=== PATIENT | male | born 1985 | race Caucasian/White ===

== ENCOUNTER 2020-04-24 18:30 | Emergency (ER) | payer OTHER, SELFPAY ==
[2020-04-24] VITALS (8 sets, daily range): BP systolic 127–192; BP diastolic 68–112; PULSE 57–88; RESP 16; TEMP 36.7; O2SAT 96–99; BMI 27.6
--- NOTE | 2020-04-24 20:14 | PC.NURSE ---
Patient reports eating dinner approx 1730 and got food bolus caught in throat. Reports history of this happening before and 4 throat surgeries in past. Patient denies SOB or difficulty breathing. No cyanosis noted, drooling, or abnormal speech.
--- NOTE | 2020-04-24 20:43 | ED_ITS ---
HPI - Skin/Abscess/Foreign Bdy General Chief complaint: Skin/Abscess/Foreign Body Stated complaint: FOOD CAUGHT IN THROAT Time Seen by Provider: 04/24/20 20:01 Source: patient and family History of Present Illness HPI narrative: Patient here with . History of eosinophilic esophagitis. History of food bolus impaction. Has had EGD 4 times. Last episode 2016 in [facility]. Today at 5:45 a.m. patient ate pork and immediately felt it get stuck. Has been spitting up since then. No dyspnea. Related Data Allergies Allergy/AdvReac Type Severity Reaction Status Date / Time No Known Drug Allergies Allergy Verified 04/24/20 20:51 Review of Systems Review of Systems Narrative: GENERAL: Denies chills, fatigue, malaise, fever, sweats. HEENT: Denies sinus pain, ear pain, sore throat, difficulty swallowing, dizziness. RESPIRATORY: Denies dyspnea, cough, wheezing, hemoptysis, sputum. CARDIOVASCULAR: Denies chest pain, palpitations, orthopnea, edema, GASTROINTESTINAL: Denies nausea, vomiting, abdominal pain, diarrhea, constipation, melena. : Denies dysuria, frequency, incontinence, hematuria, urinary retention. MUSCULOSKELETAL: denies weakness, joint pain, or bony pain SKIN: Denies rash, skin lesions, or other NEUROLOGIC: Denies weakness, headache, numbness, change in speech, confusion, seizures, incoordination. PSYCHIATRIC: No concerning psychosocial issues. ROS Unobtainable: All systems reviewed & are unremarkable except as noted in HPI and below Patient History Social History Smoking Status: Never smoker Smoking Status: Never smoker alcohol intake frequency: holidays/special occasions only Substance Use Type: does not use Exam Narrative Exam Narrative: GENERAL: patient appears stated age. Well-nourished, well- developed patient, in no distress, not toxic HEAD: Atraumatic. Normocephalic. EYES: Pupils equal round and reactive. Extraocular motions intact. No scleral icterus. No injection or drainage. ENT: Nose without bleeding, purulent drainage. Throat without erythema, tonsillar hypertrophy or exudate. Airway patent. Spitting up saliva NECK: Trachea midline. Non tender no stridor CARDIOVASCULAR: Regular rate and rhythm without murmurs, gallops, or rubs. RESPIRATORY: Clear to auscultation. Breath sounds equal bilaterally. No wheezes, rales, or rhonchi. Speaking full sentences GASTROINTESTINAL: Abdomen soft, non-tender, nondistended. EXTREMITIES: No edema or joint tenderness. BACK: Nontender without deformity or crepitance. No flank tenderness. NEURO: AOx3. SKIN: No rash or erythema of visible areas PSYCH: Not anxious, is cooperative Initial Vital Signs Initial Vital Signs: Vital Signs Temperature 98.0 F 04/24/20 18:34 Pulse Rate 57 L 04/24/20 18:34 Respiratory Rate 16 04/24/20 18:34 Blood Pressure 127/88 04/24/20 18:34 Pulse Oximetry 96 04/24/20 18:34 Course Course Course Narrative: Patient unable swallow after glucagon and Valium Decision to Admit Date: 04/24/20 Decision to Admit time: 21:47 Orders Ordered: ED Orders 04/24/20 20:48 Complete Blood Count AUTO DIFF Stat Comprehensive Metabolic Panel Stat Discontinued Medications Diazepam (Valium) 5 mg IV NOW ONE Stop: 04/24/20 21:06 Last Admin: 04/24/20 21:11 Dose: 5 mg Documented by: JOSE Diphenhydramine HCl (Benadryl) 25 mg IV NOW ONE Stop: 04/24/20 22:22 Last Admin: 04/24/20 22:22 Dose: 25 mg Documented by: HARRY Glucagon (Glucagen) 1 mg IV NOW ONE Stop: 04/24/20 20:43 Last Admin: 04/24/20 20:58 Dose: 1 mg Documented by: AMBIKAIN Famotidine (Pepcid) 20 mg in 50 mls @ 200 mls/hr IV NOW ONE Stop: 04/24/20 22:05 Last Infusion: 04/24/20 22:18 Dose: 0 mls/hr Documented by: Admin: 04/24/20 21:57 Dose: 200 mls/hr Documented by: MISSYARTIN Metoclopramide HCl (Reglan) 10 mg IV NOW ONE Stop: 04/24/20 21:52 Last Admin: 04/24/20 21:57 Dose: 10 mg Documented by: JOSE Reevaluation(s) Reevaluation #1: Unable to swallow water after glucagon and Valium Time: 21:48 Reevaluation #2: At time of transfer to OR. Patient had received Benadryl and Reglan and felt his food bolus go into the stomach. He is freely drinking water and no spitting up or drooling. Patient re-evaluated by surgeon and patient can be discharged home Time: 22:41 Consultations Consultation #1: Spoke with Dr. Logan, general surgery, she will come in to do EGD for patient Time: 21:48 Vital Signs Vital signs: Vital Signs - 8 hr 04/24/20 21:22 04/24/20 21:30 04/24/20 22:04 Pulse Rate 88 86 78 Blood Pressure 128/81 Pulse Oximetry 97 99 98 04/24/20 22:05 04/24/20 22:30 04/24/20 22:31 Pulse Rate 71 75 67 Blood Pressure 131/82 192/112 H Pulse Oximetry 98 98 97 04/24/20 22:36 Pulse Rate 74 Blood Pressure 136/68 Pulse Oximetry 98 MDM - Skin/Abscess/Foreign Bdy Lab Data Result diagrams: 04/24/20 20:48 04/24/20 20:48 Labs: Lab Results 04/24/20 04/24/20 04/24/20 Range/Units 20:48 20:48 21:34 WBC 7.4 (4.5-11.0) X10^3/uL RBC 4.58 (4.5-5.9) X10^6/uL Hgb 14.3 (13.5-17.5) g/dL Hct 41.8 (41-53) % MCV 91.2 (80-100) fL MCH 31.3 (26-34) PG MCHC 34.3 (30-36) % RDW 12.8 (11.6-14.8) % Plt Count 236 (150-400) X10^3/uL Neut % (Auto) 51.5 (50-75) % Lymph % (Auto) 31.9 (25-40) % [place] % (Auto) 7.3 (3-14) % Eos % (Auto) 8.6 H (2-4) % Baso % (Auto) 0.7 (0-2) % Neut # (Auto) 3800 (2094-5020) /uL Lymph # (Auto) 2400 (7626-9485) /uL [place] # (Auto) 500 (0-900) /uL Eos # (Auto) 600 H (0-450) /uL Baso # (Auto) 0 (0-100) /uL Sodium 142 (137-145) mmol/L Potassium 4.1 (3.4-5.1) mmol/L Chloride 109 H (98-107) mmol/L Carbon Dioxide 24 (22-32) mmol/L BUN 13 (9-20) mg/dL Creatinine 1.05 (0.66-1.25) mg/dL Estimated GFR > 60.0 (>60) mL/min BUN/Creatinine Ratio 12.4 (6-22) Glucose 97 (70-100) mg/dL Calcium 9.3 (8.4-10.2) mg/dL Total Bilirubin 1.0 (0.2-1.3) mg/dL AST 39 (17-59) IU/L ALT 42 (<50) IU/L Alkaline Phosphatase 64 (38-126) U/L Total Protein 7.8 (6.3-8.2) g/dL Albumin 4.6 (3.5-5.0) g/dL Globulin 3.2 (1.7-4.1) g/dL Albumin/Globulin Ratio 1.4 (1.0-2.8) COVID-19 PCR Negative (Negative) MDM Narrative Medical decision making narrative: Admit to surgery for EGD. Unable to swallow Discharge Plan Departure Patient Disposition: Home Clinical Impression: Esophageal obstruction due to food impaction Discharge Date/Time: 04/24/20 22:57 Instructions: DI for Foreign Body, Swallowed-Adult Activity Restrictions/Additional Instructions: Return if worse. Or any concerns or if any trouble swallowing. Call provided number to establish family doctor and for possible referral to desizing machine operator head end. Continue with soft food diet. No meats Referrals: [facility] [Outside]
[2020-04-24] MEDS: GLUCAGON,HUMAN RECOMBINANT 1 MG/ML VIAL IV (20:58)
[2020-04-24] MEDS: diazePAM 10 MG/2 ML SYRINGE 5 MG IV (21:11)
[2020-04-24 21:53] LABS: Add Manual Diff / Slide Review NO; Basophils Absolute Auto 0 /uL (0-100); Basophils Percent Auto 0.7 % (0-2); Eosinophils Absolute Auto 600 /uL (0-450); Eosinophils Percent Auto 8.6 % (2-4); Hematocrit 41.8 % (41-53); Hemoglobin 14.3 g/dL (13.5-17.5); Lymphocytes Absolute Auto 2400 /uL (1100-4500); Lymphocytes Percent Auto 31.9 % (25-40); Mean Corpuscular HGB Conc 34.3 % (30-36); Mean Corpuscular Hemoglobin 31.3 PG (26-34); Mean Corpuscular Volume 91.2 fL (80-100); Monocytes Absolute Auto 500 /uL (0-900); Monocytes Percent Auto 7.3 % (3-14); Neutrophils Absolute Auto 3800 /uL (1500-7000); Neutrophils Percent Auto 51.5 % (50-75); Platelet Count 236 X10^3/uL (150-400); Red Blood Cell Count 4.58 X10^6/uL (4.5-5.9); Red Cell Distribution Width 12.8 % (11.6-14.8); White Blood Cell Count 7.4 X10^3/uL (4.5-11.0)
[2020-04-24] MEDS: FAMOTIDINE 20 MG/50 ML PIGGYBACK 200 MG IV (21:57)
[2020-04-24] MEDS: METOCLOPRAMIDE 10 MG/2 ML INJ IV (21:57)
[2020-04-24 22:04] LABS: Alanine Aminotransferase 42 IU/L (<50); Albumin 4.6 g/dL (3.5-5.0); Albumin Globulin Ratio 1.4 (1.0-2.8); Alkaline Phosphatase 64 U/L (38-126); Aspartate Aminotransferase 39 IU/L (17-59); BUN Creatinine Ratio 12.4 (6-22); Blood Urea Nitrogen 13 mg/dL (9-20); Calcium 9.3 mg/dL (8.4-10.2); Carbon Dioxide 24 mmol/L (22-32); Chloride 109 mmol/L (98-107); Estimated Glomerular Filt Rate > 60.0 mL/min (>60); Globulin 3.2 g/dL (1.7-4.1); Glucose 97 mg/dL (70-100); HEMOLYSIS < 15 (0-50); Potassium 4.1 mmol/L (3.4-5.1); Sodium 142 mmol/L (137-145); Total Protein 7.8 g/dL (6.3-8.2)
--- NOTE | 2020-04-24 22:15 | PM.HP.1 ---
History of Present Illness History of Present Illness Date Patient Seen: 04/24/20 Time Patient Seen: 22:15 Chief complaint: FOOD CAUGHT IN THROAT Narrative: This is a 34-year-old man with history of eosinophilic esophagitis and esophageal food impaction x4. Earlier this evening around 5:30 p.m. he was eating dinner and suddenly felt that food was stuck in his esophagus. He attempted to get it to come up by retching, or to get it to pass by drinking fluids. However, he realized that all the fluids were coming back up, and he was not able to pass the food bolus. He believes it is pork. He says that he has had multiple episodes of this happening in the past. He said he has had an extensive workup at [facility] in [facility]. He sees a boiler plant operator in [facility] which he believes is Dr. Owens. He was put on budesonide slurry for treating his esophagitis, but he has not done this consistently. Dr. Hopkins in the ER tried glucagon and valium with no success. He denies any other medical history, medications, or medical problems. Past surgical history: Multiple EGDs for food impaction Past medical history: Eosinophinic esophagitis Meds: Budesonide slurred Allergies: denies SOC: lives with his in [place] [facility]: denies family history of GI dysfunction/esophageal dysmotility ROS: He denies any shortness of breath, denies respiratory symptoms, denies chest pain. Denies any recent sick contacts COVID-19 contacts. Thirteen system review is otherwise negative other than as mentioned below and in HPI. PE: GENERAL: Well groomed and cooperative. No acute distress. Appears stated age. Answers questions promptly and appropriately. Vital signs noted. HENT: Normocephalic, atraumatic. Hearing intact. EYES: Conjunctiva pink, sclera white, no periorbital swelling. CARDIOVASCULAR: Regular rate. No pedal edema. RESPIRATORY: Non-tachypneic, breathing comfortably on room air. GASTROINTESTINAL: Abdomen soft and non-distended GENITALURINARY: No flank tenderness. MUSCULOSKELETAL: Equal tone and mass bilaterally. SKIN: Warm, dry, soft, appropriate color for ethnicity. No other lesions, rashes, or wounds. NEURO: Alert and Oriented X 3. No gross sensory deficits, or cognitive issues. PSYCH: Appropriate affect and mood. Patient History Family & Social History Safety & Behavioral: Feels Safe in Current Yes Environment Been Physically Hurt or No Threatened By a Person Tobacco & Substance use: Smoking Status Never smoker alcohol intake frequency holiday/special occasion Substance Use Type does not use Meds Home Medications and Allergies Allergies Allergy/AdvReac Type Severity Reaction Status Date / Time No Known Drug Allergies Allergy Verified 04/24/20 20:51 Exam Vital Signs (past 8 hours): - 04/24/20 18:34 04/24/20 21:22 04/24/20 21:30 Temperature 98.0 F Pulse Rate 57 L 88 86 Respiratory Rate 16 Blood Pressure 127/88 128/81 Pulse Oximetry 96 97 99 Oxygen Delivery Method Room Air Objective Labs Result Diagrams: 04/24/20 20:48 04/24/20 20:48 Labs: Laboratory Results - last 24 hr 04/24/20 20:48 WBC 7.4 RBC 4.58 Hgb 14.3 Hct 41.8 MCV 91.2 MCH 31.3 MCHC 34.3 RDW 12.8 Plt Count 236 Neut % (Auto) 51.5 Lymph % (Auto) 31.9 [place] % (Auto) 7.3 Eos % (Auto) 8.6 H Baso % (Auto) 0.7 Neut # (Auto) 3800 Lymph # (Auto) 2400 [place] # (Auto) 500 Eos # (Auto) 600 H Baso # (Auto) 0 Assessment & Plan Assessment and plan (1) Esophageal obstruction due to food impaction: Status: Acute (2) Eosinophilic esophagitis: Status: Acute Assessment & Plan narrative: This is a 34-year-old man with acute recurrent food impaction and history of eosinophilic esophagitis. Risks and benefits of EGD with possible disimpaction were discussed including risk of perforation or damage to the esophagus, risk of inability to disimpact the food bolus, risk of needing additional procedures, needing transfer to a tertiary center, needing a chest tube or other interventions. The risks and benefits were discussed with the patient and his , who desired to proceed with EGD and disimpaction. Plan: Emergency EGD under general anesthesia to disimpact esophagus COVID-19 COVID-19 status: Result pending Time Spent With Patient Time with patient: 25 - 35 minutes Quality VTE Deep Vein Thrombosis/Pulmonary Embolism Present on Admission: No
[2020-04-24] MEDS: diphenhydrAMINE 50 MG/ML VIAL 25 MG IV (22:22)
--- NOTE | 2020-04-24 22:35 | PC.NURSE ---
Patient used call light and reported that food bolus was passed.
[2020-04-24 22:52] LABS: COVID19 -Nasal RAPID Negative (Negative)
== END 2020-04-24 22:57 | disposition home or self-care (01) ==
PROVIDERS: Emergency Provider Emergency Medicine
DX: K22.2 Esophageal obstruction (principal); T18.128A Food in esophagus causing other injury, initial encounter; K20.0 Eosinophilic esophagitis
CPT/HCPCS: 36415; 80053; 85025; 87635; 96365; 96375; 99284; J0330; J1200; J1610; J2250; J2704; J2765; J3010; J3360